=== PATIENT | male | born 1990 | race Caucasian/White ===

== ENCOUNTER 2019-06-06 09:09 | Emergency (ER) | payer MEDICAID, OTHER ==
[~2019-06-06] VITALS: Ht 182.9 cm; Wt 90.7 kg
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
[2019-06-06] MEDS ORDERED: LEVETIRACETAM (250 MG) 250 MG TABLET PO ONE ×2 (09:30→09:59)
[2019-06-06 09:34] LABS: CALCIUM, SERUM 9.1 mg/dL (8.5-10.1); POTASSIUM 4.7 mmol/L (3.5-5.1)
--- NOTE | 2019-06-06 09:36 | NUR ---
PATIENT NOTED HAVING SEIZURES FOR 30SECONDS, O2 APPLIED VIA FACE MASK AT 10LPM. PATIENT SAFETY PRIORITIZED. MADE MD AWARE. RECEIVED VERBAL ORDER OF ATIVAN IV 1MG. CARRIED OUT
[2019-06-06] MEDS ORDERED: LORAZEPAM INJ 2 MG/ML VIAL ONE (09:38)
[2019-06-06] MEDS: LORAZEPAM INJ 2 MG/ML VIAL IV ONE (09:39)
[2019-06-06] MEDS: LEVETIRACETAM (500MG) 1,000 MG in IV NS 0.9% 100 ML IV STA (10:10)
[2019-06-06] MEDS: LEVETIRACETAM (250 MG) 250 MG TABLET PO ONE (10:12)
--- NOTE | 2019-06-06 10:42 | NUR ---
PATIENT ASLEEP IN BED, EASILY AROUSABLE BY VOICE. HOOKED TO MONITOR, VSS. WILL CONTINUE TO MONITOR
--- NOTE | 2019-06-06 12:02 | NUR ---
PATIENT ASLEEP IN BED, EASILY AROUSABLE BY VOICE. HOOKED TO MONITOR, VSS. WILL CONTINUE TO MONITOR
--- NOTE | 2019-06-06 13:59 | NUR ---
pt awake. verbally responsive. requested for food tray. dr alfonso into see patient. vss.
--- NOTE | 2019-06-06 14:10 | NUR ---
provided w/ food tray.
--- NOTE | 2019-06-06 14:50 | NUR ---
IV removed. Catheter intact and site benign. Pressure and 4x4 applied to site. No bleeding noted. Patient discharged to home in stable condition. PATIENT AMBULATORY W STEADY GAIT. Written and verbal after care instructions given. Patient verbalizes understanding of instruction.
[2019-06-06 14:51] VITALS: BP 112/64
== END 2019-06-06 14:51 | disposition home or self-care (01) ==
LOC: ER 09:17
DX: G40.909 Epilepsy, unspecified, not intractable, without status epilepticus (principal); J45.909 Unspecified asthma, uncomplicated
CPT/HCPCS: 36415; 80048; 96374; 99283; J2060; J1953; J7030